=== PATIENT | male | born 1990 | race Caucasian/White ===

== ENCOUNTER 2023-07-07 12:05 | Emergency (ER) | payer SELFPAY ==
[2023-07-07] VITALS (8 sets, daily range): BP systolic 133–147; BP diastolic 74–85; PULSE 66–71; RESP 16–22; TEMP 36.7–36.8; O2SAT 96–100; BMI 24.0
--- NOTE | 2023-07-07 12:11 | HMH.EDGENADL ---
Discharge Plan Disposition Patient Disposition: Home, Self-Care Condition: Good Referrals Follow up/Referrals: Christian Deshpande MD [Primary Care Provider] - See instructions Activity Restrictions/Add. Instructions Additional Instructions/Restrictions: Please return to the emergency department if you experience any new or worsening symptoms. Clinical Impressions Clinical Impression: Left leg pain Chest pain Qualifiers: Chest pain type: precordial pain Qualified Code(s): R07.2 - Precordial pain Discharge ED Provider: Dominick Story Adult HPI General Chief complaint: Chest Pain Stated complaint: upper leg pain Time Seen by Provider: 07/07/23 12:11 History of Present Illness HPI narrative: The patient presents with a chief complaint of deep vascular pain in the upper left hamstring and lower left calf, accompanied by tightness in the chest for the past two weeks. He is currently on testosterone replacement therapy and expresses concern regarding blood thickness. He reports not having donated blood in approximately eight to nine months, which is a method he has previously used to manage his red blood cell count. Upon further questioning, patient states he has had symptoms most prominently prior to donating blood for elevated hemoglobin secondary to TRT. Symptoms are usually alleviated by donating blood. His chief concern is his left lower extremity pain which is new and has been constant. His chest pain is nonpleuritic, nonexertional, with no associated shortness of air or hemoptysis. He denies any palpitations. He denies any presyncope or syncope Related Data Allergies Allergy/AdvReac Type Severity Reaction Status Date / Time No Known Allergies Allergy Verified 07/07/23 12:52 [facility] Disclaimer: The information contained in this section may have been updated after the patient was seen, as this information can be updated by other users. Social History Smoking Status: Current every day smoker alcohol intake: current current occupational status: employed Travel in the last 8 weeks: None ROS Obtained: Yes Systems reviewed as appropriate & no additional complaints except as documented As per HPI Physical Exam General General appearance: alert and in no apparent distress Head Head exam: atraumatic and normocephalic Eye Eye exam: Present normal appearance Neck Neck exam: Present normal inspection Chest Chest inspection: Present normal inspection and symmetric chest wall rise Respiratory Respiratory exam: Present normal lung sounds bilaterally; Absent respiratory distress Cardiovascular Cardiovascular exam: Present regular rate and normal rhythm Abdominal Exam Abdominal exam: Present soft Extremities Exam Extremities exam: Present other (Left posterior thigh tenderness to palpation, no obvious swelling, no erythema.) Neurological Exam Neurological exam: Present alert and oriented X3 Psychiatric Psychiatric exam: Present normal affect and normal mood Skin Skin exam: Present warm and dry Medical Decision Making Medical Records Medical records reviewed: Yes I reviewed the patient's medical records. Cipriano Inquiry Pt receiving controlled substance: No Vital Signs: 07/07/23 12:07 07/07/23 12:30 07/07/23 13:00 Temperature 98.2 F Temperature Source Oral Pulse Rate 71 68 Pulse Rate [Left Radial] 68 Respiratory Rate 16 18 Blood Pressure 147/85 H 133/74 Blood Pressure [Right Arm] 147/85 H Blood Pressure Mean 93 Blood Pressure Mean [Right Arm] 105 02 Sat by Pulse Oximetry 99 100 98 Oxygen Delivery Method Room Air 07/07/23 13:31 07/07/23 14:00 07/07/23 14:30 Temperature Temperature Source Pulse Rate 68 67 66 Pulse Rate [Left Radial] Respiratory Rate 22 22 22 Blood Pressure 133/80 144/78 H 137/75 Blood Pressure [Right Arm] Blood Pressure Mean 88 Blood Pressure Mean [Right Arm] 02 Sat by Pulse Oximetry 96 99 96 Oxygen Delivery Method
--- NOTE | 2023-07-07 12:19 | ECG_ITS ---
APPROVED REPORT Exam: Resting ECG HR:67 bpm ECG Measurements Heart Rate 67 AXES VT 163 P 74 QRSd 90 QRS 91 QT 379 T 76 QTc 395 Conclusion SINUS RHYTHM WITH SINUS ARRHYTHMIA BORDERLINE RIGHT AXIS DEVIATION [QRS AXIS > 90] NONSPECIFIC T-WAVE ABNORMALITY BORDERLINE ECG UNCONFIRMED REPORT Electronically signed by : Jose Nicolas MD 07/08/2023 14:17:51
[2023-07-07 13:03] LABS: Basophils # 0.1 K/mm3 (0-0.2); Basophils % 0.9 % (0.1-2.0); Eosinophils # 0.3 K/mm3 (0.0-0.4); Hematocrit 51.3 % (42.0-52.0); Hemoglobin 17.7 g/dL (14.1-18.0); Lymphocytes # 2.2 K/mm3 (0.7-4.5); Lymphocytes % 35.8 % (10-50); Mean Corpuscular HGB Conc 34.4 g/dL (31.8-35.4); Mean Corpuscular Hemoglobin 31.2 pg (27.0-31.2); Mean Corpuscular Volume 90.6 fl (80-94); Mean Platelet Volume 7.7 fl (7.4-10.4); Monocytes # 0.5 K/mm3 (0.1-1.0); Monocytes % 7.4 % (1.7-9.3); Neutrophils # 3.2 K/mm3 (1.8-7.8); Platelet Count 246 K/mm3 (142-424); Red Blood Count 5.67 M/mm3 (4.60-6.20); Red Cell Distribution Width 12.9 % (11.5-17.5); White Blood Count 6.2 K/mm3 (4.8-10.8)
[2023-07-07 13:13] LABS: Alanine Aminotransferase 30 U/L (12-78); Albumin Level 4.6 g/dl (3.5-5.0); Albumin/Globulin Ratio 1.5 (1.1-1.8); Alkaline Phosphatase 53 U/L (38-126); Anion Gap 7.2 mEq/L (5-15); Aspartate Amino Transferase 34 U/L (17-59); Bilirubin,Total 0.5 mg/dl (0.2-1.3); Blood Urea Nitrogen 16 mg/dl (9-20); Calcium 8.8 mg/dl (8.4-10.2); Carbon Dioxide 33 mmol/L (22.0-30.0); Chloride 101 mmol/L (98-107); Creatinine Clearance Estimated 118 mL/min (50-200); Estimated Glomerular Filt Rate 79 ml/min (>60); GFR (African American) 95 ML/MIN (>60); Globulin 3.1 g/dL (1.3-3.2); Glucose 87 mg/dl (74-100); Potassium 4.2 mmoL/L (3.5-5.1); Sodium 137 mmol/L (136-145); Total Protein,Serum 7.7 g/dl (6.3-8.2)
[2023-07-07 13:14] LABS: INR 1.11 (0.9-1.1); Prothrombin Time 11.9 seconds (10.1-12.5)
[2023-07-07 13:20] LABS: D-Dimer 0.59 ug/mL (0.0-0.5)
[2023-07-07 13:26] LABS: Troponin I < 0.01 ng/ml (0.00-0.034)
[2023-07-07 13:29] LABS: Free T4 (Free Thyroxine) 0.92 ng/dl (0.78-2.19)
--- NOTE | 2023-07-07 13:30 | CA_ITS ---
FINAL REPORT TECHNIQUE: extremity venous duplex was performed with augmentation and compression. CLINICAL HISTORY: LE pain in thigh and calf COMPARISON: None FINDINGS: LEFT LEG VENOUS DOPPLER: Proper flow is seen throughout the deep venous system. There is no evidence of deep venous thrombosis. IMPRESSION: no deep venous thrombosis. Reviewed, Interpreted and Dictated by Luisito Santana MD Transcribed by Elizabeth Garcia Authenticated and [facility]
--- NOTE | 2023-07-07 13:36 | PC.NURSE ---
call made to respiratory to call the workers compensation consultantpersonal financial advisor available to come in for a venous Doppler on pt.
--- NOTE | 2023-07-07 13:36 | PC.NURSE ---
call made to call in trade clerk for venous Doppler
[2023-07-07 13:43] LABS: Thyroid Stimulating Hormone 1.17 uIU/mL (0.465-4.68)
--- NOTE | 2023-07-07 13:54 | PC.NURSE ---
spoke with stephan in respiratory. she has called khanh to come in and perform the venous doppler
--- NOTE | 2023-07-07 14:27 | PC.NURSE ---
hotel housekeeper in ED nurses station when MD spoke with hospitalist. hotel housekeeper aware of need for bed placement.
--- NOTE | 2023-07-07 14:46 | PC.NURSE ---
vascular at bedside for scan
== END 2023-07-07 15:17 | disposition home or self-care (01) ==
PROVIDERS: Emergency Provider Emergency Medicine; PCP Family Medicine
DX: R07.2 Precordial pain (principal); M79.652 Pain in left thigh; M79.662 Pain in left lower leg; F17.210 Nicotine dependence, cigarettes, uncomplicated; Z79.890 Hormone replacement therapy
CPT/HCPCS: 80053; 84439; 84443; 84484; 85025; 85378; 85610; 93005; 93971; 99284